=== PATIENT | male | born 1970 | race Caucasian/White ===

== ENCOUNTER → 2023-12-14 | Outpatient (CLI) | payer OTHER ==
[~2023-12-14] VITALS: Ht 180.3 cm; Wt 116.1 kg
[~2023-12-14] MED LIST: DOXYCYCLINE 10100 MG PO; MOBIC 7.5MG7.5 MG PO; NAPROSYN500 MG PO; NORCO 325 MG-7.1 TAB PO; PERCOCET 325 MG1 TA2 PO; PRILOSEC 20MG20 MG PO; TYLENOL 500MG500 MG PO; VALIUM 5MG T5 MG/TAB PO; ZYRTECODT PO
[2023-12-14 14:22] VITALS: BP 154/92; PULSE 75; TEMP 98.2
== END ==
LOC: COL.RAD 06:24
DX: E04.9 Nontoxic goiter, unspecified (principal)